=== PATIENT | female | born 1980 | race Two or more races ===

== ENCOUNTER 2017-02-10 16:47 | Emergency (ER) | payer MEDICAID ==
[~2017-02-10] VITALS: Ht 152.4 cm; Wt 55.3 kg
[2017-02-10 17:39] VITALS: BP 110/54
[2017-02-10] MEDS ORDERED: IBUPROFEN600 MG ORAL (18:08)
[2017-02-10] MEDS ORDERED: TAMIFLU75 MG ORAL (18:08)
[2017-02-10] MEDS ORDERED: PROMETHAZINE-D118 ML ORAL (18:08)
[2017-02-10 18:30] VITALS: BP 99/56
--- NOTE | 2017-02-10 22:53 | Emergency Room Report ---
History of Present Illness General Chief Complaint: Upper Respiratory Illness Source: Patient Present Illness [facility] The patient is a 36-year-old female who denies medical history presenting for 2 days of cough, fever, night sweats, fatigue, and total body pain. She denies any recent travel or known sick contacts. No flu shot this year. She denies other symptoms including N, V, SOB, CP, diarrhea Allergies: Coded Allergies: No Known Allergies (Unverified , 02/10/17) Patient History Past Medical History: see triage record Pertinent Family History: none Last Menstrual Period: 01/27/17 Now: No Reviewed Nursing Documentation: PMH: Agreed, PSxH: Agreed Nursing Documentation-PMH Past Medical History: No Stated History Review of Systems All Other Systems: negative except mentioned in HPI Physical Exam Vital Signs Date Time Temp Pulse Resp B/P (MAP) Pulse Ox O2 Delivery O2 Flow Rate FiO2 02/10/17 16:57 102.7 107 20 110/54 98 Room Air Sp02 EP Interpretation: reviewed, normal General Appearance: no apparent distress, alert, GCS 15, non-toxic Head: normocephalic, atraumatic Eyes: bilateral eye normal inspection, bilateral eye PERRL ENT: hearing grossly normal, no angioedema, normal voice, pharyngeal erythema Neck: full range of motion, supple/symm/no masses Respiratory: chest non-tender, lungs clear, normal breath sounds, speaking full sentences Cardiovascular #1: regular rate, rhythm, no edema Musculoskeletal: back normal, gait/station normal, normal range of motion, non- tender Neurologic: alert, oriented x3, responsive, motor strength/tone normal, sensory intact, speech normal Psychiatric: judgement/insight normal, memory normal, mood/affect normal, no suicidal/homicidal ideation Skin: normal color, no rash, warm/dry, well hydrated Lymphatic: no adenopathy Medical Decision Making PA Attestation Dr. Weston is my supervising physician. Patient management was discussed with my supervising physician Diagnostic Impression: Primary Impression: Influenza ER Course The patient is a 36-year-old female who denies medical history presenting for 2 days of cough, fever, night sweats, fatigue, and total body pain. Differential diagnosis include but not limited to influenza, pharyngitis, sinusitis, AOM, bronchitis, PNA PE: Febrile NAD. Appears somewhat lethargic HEENT exam: There is pharyngeal erythema. Otherwise unremarkable. No lymphadenopathy Lungs are clear to auscultation bilaterally Positive for influenza A The patient will be treated with Tamiflu as well as symptomatic treatment. ER precautions are given Microbiology Date/Time Source Procedure Growth Status 02/10/17 17:25 Nasal Nares Influenza Types A,B Antigen (DANISHA) - Final Complete Lab Results Impression + for influenza Last Vital Signs Date Time Temp Pulse Resp B/P (MAP) Pulse Ox O2 Delivery O2 Flow Rate FiO2 02/10/17 18:30 102.7 86 18 99/56 100 Room Air Status: improved Disposition: HOME, SELF-CARE Condition: Improved Scripts Oseltamivir Phosphate (Tamiflu) 75 Mg Capsule 75 MG ORAL TWICE A DAY, #10 CAP Prov: YADY BRO.A. 02/10/17 D-Methorphan Hb/Prometh Hcl* (PROMETHAZINE-DM SYRUP*) 118 Ml Syrup 5 ML ORAL Q6H Y for For Cough, #118 ML 0 Refills Prov: YADY BRO.A. 02/10/17 Ibuprofen* (MOTRIN*) 600 Mg Tablet 600 MG ORAL Q8H Y for For Pain, #30 TAB 0 Refills Prov: DAMIANANYADY P.A. 02/10/17 Referrals: NOT CHOSEN IPA/MD,REFERRING (PCP) Patient Instructions: Influenza, Adult Additional Instructions: I discussed my findings with the patient. All questions and concerns have been answered. Treatment and medication compliance have been addressed. I advised the patient that they need to follow up with PMD in 3-5 days. Return to ED if symptoms worsen, new symptoms arise, or if needed for any reason. Patient verbalized understanding of discharge instructions. YADY BRO Feb 10, 2017 22:53
== END 2017-02-10 18:30 | disposition home or self-care (01) ==
LOC: EMR 18:28
DX: J11.1 Influenza due to unidentified influenza virus with other respiratory manifestations (principal)
CPT/HCPCS: 86710; 99283

== ENCOUNTER 2018-09-21 15:30 | Emergency (ER) | payer MEDICAID ==
[~2018-09-21] VITALS: Ht 152.4 cm; Wt 54.4 kg
[~2018-09-21 15:30] MED LIST: IBUPROFEN600 MG ORAL; PROMETHAZINE-D118 ML ORAL; TAMIFLU75 MG ORAL
[2018-09-21] MEDS ORDERED: NKM (15:46)
--- NOTE | 2018-09-21 15:55 | NUR ---
ED Nurse Note: PT WALKED IN TO ER TODAY FROM HOME. AOX4. PT C/O LOWER ABDOMINAL PAIN, 07/26, RADIATING TO LEFT LOWER BACK ALONG WITH VAGINAL BLEEDING X 2 DAYS AGO. PT STATES SHE IS A CHANGING ONE PAD EVERY 4 HOURS. PT STATES SHE DID HAVE CLOTS WITH BLEEDING BUT DENIES ANY CLOTS TODAY. PT STATES SHE HAD A POSITIVE URINE RESULT FROM [facility] ON 09/17/18. PT DENIES CRAMPING OR CONTRACTIONS.
--- NOTE | 2018-09-21 16:12 | Emergency Room Report ---
History of Present Illness General Chief Complaint: Complications Source: Patient Present Illness HPI 38-year-old female presents to the emergency department complaining of 6 out of 10 severity lower left-sided abdominal pain that radiates to her back with associated vaginal bleeding x2 days. Patient reports that she is currently she had a positive test at a clinic 4 days ago. Patient denies taking vitamins. Patient states her last menstrual period was in August approximately August 25. She reports that she is G2, P1 with a previous C -section denies complications during her previous process. Patient denies past medical history she also reports she is been noticing she has had dry mouth for several days she denies cramping sensation she denies nausea vomiting, fevers or chills. Patient does report some dysuria she denies urinary frequency. describes vaginal bleeding to be dark red in color and that she is using a normal pad every 4 hours. Denies CP, Palpitations, LOC, AMS, dizziness, Changes in Vision, Sensation, paresthesias, or a sudden severe headache. Allergies: Coded Allergies: No Known Allergies (Unverified , 02/10/17) Patient History Past Medical History: see triage record Past Surgical History: none Pertinent Family History: none Now: Yes Reviewed Nursing Documentation: PMH: Agreed; PSxH: Agreed Nursing Documentation-PMH Past Medical History: No Stated History Review of Systems All Other Systems: negative except mentioned in HPI Physical Exam Vital Signs Date Time Temp Pulse Resp B/P (MAP) Pulse Ox O2 Delivery O2 Flow Rate FiO2 09/21/18 15:38 98.1 58 15 115/75 (88) 97 Room Air Sp02 EP Interpretation: reviewed, normal General Appearance: no apparent distress, alert, GCS 15, non-toxic Head: normocephalic, atraumatic Eyes: bilateral eye normal inspection, bilateral eye PERRL ENT: hearing grossly normal, normal voice Neck: full range of motion Respiratory: lungs clear, normal breath sounds, speaking full sentences Cardiovascular #1: regular rate, rhythm Gastrointestinal: normal bowel sounds, non tender, soft, no peritonitis, non- distended, no guarding Rectal: deferred Genitourinary: normal inspection, no CVA tenderness, other - Left adnexal ttp. Midline TTP, deferred - FOR pelvic US, moderate blood in the vaginal vault. Musculoskeletal: back normal, gait/station normal, normal range of motion, non- tender Neurologic: alert, oriented x3, responsive, motor strength/tone normal, sensory intact, speech normal, grossly normal Psychiatric: judgement/insight normal Lymphatic: no adenopathy Medical Decision Making PA Attestation Dr. Flores is my supervising Physician whom patient management has been discussed with. Diagnostic Impression: Primary Impression: Miscarriage, threatened, early Additional Impression: Vaginal bleeding affecting early ER Course 38-year-old female presents to the emergency department complaining of 6 out of 10 severity lower left-sided abdominal pain that radiates to her back with associated vaginal bleeding x2 days. Patient reports that she is currently she had a positive test at a clinic 4 days ago. Patient denies taking vitamins. Patient states her last menstrual period was in August approximately August 25. She reports that she is G2, P1 with a previous C -section denies complications during her previous process. Patient denies past medical history she also reports she is been noticing she has had dry mouth for several days she denies cramping sensation she denies nausea vomiting, fevers or chills. Patient does report some dysuria she denies urinary frequency. describes vaginal bleeding to be dark red in color and that she is using a normal pad every 4 hours. Denies CP, Palpitations, LOC, AMS, dizziness, Changes in Vision, Sensation, paresthesias, or a sudden severe headache. Ddx considered but are not limited to: Fibroid, ectopic , Fibroid, Spontaneous , Vital signs: are WNL, pt. is afebrile H&PE are most consistent with: spotting during early with threatened miscarriage ORDERS: -Urine hcg- Positive -serum Hcg Quant: 21 - Blood/RH type and screen- see attached labs --- Rh POSITIVE -UA: RBC's , few bacteria and few squamous--most indicative of contamination: presence of equal amounts of bacteria and squamous cells, no elevation in inflammatory markers, nitrite negative. -BMP: WNL ED INTERVENTIONS: None at this time. --Patient declines Tylenol DISCHARGE: At this time pt. is stable for d/c to home. Will provide printed patient care instructions, and any necessary prescriptions. Care plan and follow up instructions have been discussed with the patient prior to discharge. Labs Test 09/21/18 16:08 Urine Color Pale yellow Urine Appearance Clear Urine pH 5 (4.5-8.0) Urine Specific [place] 1.010 (1.005-1.035) Urine Protein 1+ (NEGATIVE) Urine Glucose (UA) Negative (NEGATIVE) Urine Ketones Negative (NEGATIVE) Urine Blood 5+ (NEGATIVE) Urine Nitrite Negative (NEGATIVE) Urine Bilirubin Negative (NEGATIVE) Urine Urobilinogen Normal MG/DL (0.0-1.0) Urine Leukocyte Esterase Negative (NEGATIVE) Urine RBC 10-15 /HPF (0 - 2) Urine WBC 0-2 /HPF (0 - 2) Urine Squamous Epithelial Cells Few /LPF (NONE/OCC) Urine Bacteria Few /HPF (NONE) Sodium Level 141 MMOL/L (136-145) Potassium Level 3.6 MMOL/L (3.5-5.1) Chloride Level 102 MMOL/L (98-107) Carbon Dioxide Level 28 MMOL/L (21-32) Anion Gap 11 mmol/L (5-15) Blood Urea Nitrogen 10 mg/dL (7-18) Creatinine 0.6 MG/DL (0.55-1.30) Estimat Glomerular Filtration Rate > 60 mL/min (>60) Glucose Level 87 MG/DL (74-106) Calcium Level 9.9 MG/DL (8.5-10.1) Total Bilirubin 0.4 MG/DL (0.2-1.0) Aspartate Amino Transf (AST/SGOT) 14 U/L (15-37) Alanine Aminotransferase (ALT/SGPT) 15 U/L (12-78) Alkaline Phosphatase 64 U/L (46-116) Total Protein 8.4 G/DL (6.4-8.2) Albumin 4.2 G/DL (3.4-5.0) Globulin 4.2 g/dL Albumin/Globulin Ratio 1.0 (1.0-2.7) Human Chorionic Gonadotropin, Quant 21 mIU/mL (1-6) CT/MRI/US Diagnostic Results CT/MRI/US Diagnostic Results : Imaging Test Ordered: Pelvic US Impression " Endometrium measures 4 mm. No IUP. No complex adnexal lesions. Findings are nonspecific and may be seen in the setting of early IUP, SAB or occult ectopic. Correlation and follow-up needed. " --per official radiology report- Please see report for specific details. Last Vital Signs Date Time Temp Pulse Resp B/P (MAP) Pulse Ox O2 Delivery O2 Flow Rate FiO2 8/6/19 15:38 98.1 58 15 115/75 (88) 97 Room Air Disposition: HOME, SELF-CARE Condition: Stable Scripts Acetaminophen* (TYLENOL EXTRA STRENGTH*) 500 Mg Tablet 500 MG ORAL Q6H, #20 TAB 0 Refills Prov: Julissa Portillo 09/21/18 Vit #91/Fe Fum/Fa/Dha ( + DHA COMBO PACK) 1 Each Combo..pkg 1 EACH PO DAILY for 30 Days, #1 PACK 2 Refills Prov: Julissa Portillo 09/21/18 Patient Instructions: Threatened Miscarriage, Threatened Miscarriage, Easy-to- Read Additional Instructions: Take medications as directed. YOUR beta HCG today was ( 21). Follow up with a OBGYN within 3 days, even if your symptoms have resolved. Return sooner to ED if new symptoms occur, or current symptoms become worse. - Please note that this Emergency Department Report was dictated using [employer] technology software, occasionally this can lead to erroneous entry secondary to interpretation by the dictation equipment. Julissa Portillo Sep 21, 2018 16:12
--- NOTE | 2018-09-21 16:17 | NUR ---
ED Nurse Note: RADIOLOGY CALLED FOR ULTRASOUND.
--- NOTE | 2018-09-21 16:22 | NUR ---
ED Nurse Note: PT. WENT DOWN TO US
[2018-09-21 16:24] LABS: APPEARANCE,URINE CLEAR; BILIRUBIN, URINE NEGATIVE (NEGATIVE); COLOR,URINE PALE YELLOW; GLUCOSE, URINE (UA) NEGATIVE (NEGATIVE); KETONES,URINE NEGATIVE (NEGATIVE); LEUKOCYTE ESTERASE ,URINE NEGATIVE (NEGATIVE); NITRITE,URINE NEGATIVE (NEGATIVE); PH,URINE 5 (4.5-8.0); PROTEIN,URINE 1+ (NEGATIVE); UROBILINOGEN,URINE NORMAL MG/DL (0.0-1.0)
[2018-09-21 16:34] LABS: ANION GAP 11 mmol/L (5-15); BLOOD UREA NITROGEN 10 mg/dL (7-18); CALCIUM 9.9 MG/DL (8.5-10.1); CARBON DIOXIDE 28 MMOL/L (21-32); CHLORIDE 102 MMOL/L (98-107); CREATININE 0.6 MG/DL (0.55-1.30); POTASSIUM 3.6 MMOL/L (3.5-5.1); SODIUM 141 MMOL/L (136-145)
[2018-09-21 16:38] LABS: ALANINE AMINOTRANSFERASE 15 U/L (12-78); ALBUMIN 4.2 G/DL (3.4-5.0); ALKALINE PHOSPHATASE 64 U/L (46-116); ASPARTATE AMINO TRANSFERASE 14 U/L (15-37); BILIRUBIN,TOTAL 0.4 MG/DL (0.2-1.0)
--- NOTE | 2018-09-21 17:20 | NUR ---
ED Nurse Note: PT BACK FROM ULTRASOUND.
--- NOTE | 2018-09-21 17:48 | Diagnostic Imaging Report ---
Indication: Abdominal pain, positive test Technique: Transabdominal and endovaginal pelvic ultrasound was performed. Findings: Uterus is anteverted, measuring approximately 8.8 x 4.1 x 5.1 cm. Endometrium is not thickened, measuring 4 mm. No gestational sac is identified. There is no free fluid. Right ovary: Measures 3.6 x 2.4 x 3 cm (13 cc). Vascular flow is confirmed with color Doppler. Simple appearing hypoechoic structure in the ovary likely represents follicle/cyst. Left ovary: Without masses, measuring 3.7 x 2.3 x 3.9 cm (18 cc). Vascular flow is confirmed with color Doppler. Hypoechoic foci in the cervix likely represent nabothian cysts. Impression: No evidence of intrauterine . In the setting of positive bHCG, follow-up is recommended to exclude possibility of occult ectopic .
[2018-09-21] MEDS ORDERED: TYLENOL EXTRA500 MG ORAL (18:21)
[2018-09-21] MEDS ORDERED: PRENATAL + DHA1 EAC1 PO (18:21)
[2018-09-21 18:55] VITALS: BP 122/76
--- NOTE | 2018-09-21 18:55 | NUR ---
ED Nurse Note: PT LAYING PEACEFULLY IN BED IN NAD. AOX4. PRESCRIPTIONS AND DISCHARGE PAPERWORK EXPLAINED TO PT. PT VERBALIZES UNDERSTANDING AND ALL QUESTIONS ANSWERED. PRESCRIPTIONS AND DISCHARGE PAPERWORK GIVEN TO PT, IV AND ID WRISTBAND REMOVED. PT WALKED OUT OF ER WITH STEADY GAIT AND ALL BELONGINGS.
== END 2018-09-21 18:57 | disposition home or self-care (01) ==
LOC: EMR 16:25
DX: O20.0 Threatened abortion (principal); Z3A.00 Weeks of gestation of pregnancy not specified; O46.91 Antepartum hemorrhage, unspecified, first trimester
CPT/HCPCS: 36415; 76830; 76856; 80053; 81003; 84702; 86900; 86901; 99284

== ENCOUNTER 2018-10-27 18:33 | Emergency (ER) | payer MEDICAID ==
[~2018-10-27] VITALS: Ht 157.5 cm; Wt 55.8 kg
[~2018-10-27 18:33] MED LIST changes: +NKM; +PRENATAL + DHA1 EAC1 PO; +TYLENOL EXTRA500 MG ORAL
[2018-10-27 19:08] LABS: APPEARANCE,URINE CLEAR; BILIRUBIN, URINE NEGATIVE (NEGATIVE); COLOR,URINE PALE YELLOW; GLUCOSE, URINE (UA) NEGATIVE (NEGATIVE); KETONES,URINE NEGATIVE (NEGATIVE); LEUKOCYTE ESTERASE ,URINE 1+ (NEGATIVE); NITRITE,URINE NEGATIVE (NEGATIVE); PH,URINE 6 (4.5-8.0); PROTEIN,URINE NEGATIVE (NEGATIVE); UROBILINOGEN,URINE NORMAL MG/DL (0.0-1.0)
--- NOTE | 2018-10-27 19:12 | NUR ---
ED Nurse Note:pt. came with symptoms of urinary trac infection, urine sent to labs
--- NOTE | 2018-10-27 19:13 | Emergency Room Report ---
History of Present Illness General Chief Complaint: Female Urogenital Problems Source: Patient (Julissa Portillo) Present Illness HPI 38-year-old female presents to the emergency department complaining of 7 out of 10 severity left lower quadrant abdominal pain with radiation towards the back in addition to pain with urination and urinary frequency x 2 days. Patient denies rashes, genital lesions, hematuria, urgency, nausea or vomiting. Patient reports normal bowel movements. She denies fevers or chills. Patient reports pain is exacerbated upon light palpation of the lower left portion of the abdomen. Patient states she feels as though her stomach is very distended. Patient reports that she is able to pass gas. She denies or suspicion of . Denies vaginal d/c. No aggravating or relieving factors at this time. (Julissa Portillo) Allergies: Coded Allergies: No Known Allergies (Unverified , 02/10/17) Patient History Past Medical History: see triage record Past Surgical History: none Pertinent Family History: none Last Menstrual Period: 10/21/18 Now: No Reviewed Nursing Documentation: PMH: Agreed; PSxH: Agreed (Julissa Portillo) Nursing Documentation-PMH Past Medical History: No Stated History (Julissa Portillo) Physical Exam Vital Signs Date Time Temp Pulse Resp B/P (MAP) Pulse Ox O2 Delivery O2 Flow Rate FiO2 10/27/18 18:35 98.2 72 18 102/65 (77) 99 Room Air Sp02 EP Interpretation: reviewed, normal General Appearance: alert, GCS 15, non-toxic, mild distress Head: normocephalic, atraumatic Eyes: bilateral eye normal inspection, bilateral eye PERRL ENT: hearing grossly normal, normal voice Neck: full range of motion Respiratory: lungs clear, normal breath sounds, speaking full sentences Cardiovascular #1: regular rate, rhythm Gastrointestinal: normal bowel sounds, soft, tenderness - moderate TTP to the Left LQ, not particularly in the adnexal area. Genitourinary: normal inspection, no CVA tenderness, adnexa normal - not tender Musculoskeletal: back normal, gait/station normal, normal range of motion, non- tender Neurologic: alert, oriented x3, responsive, motor strength/tone normal, sensory intact, speech normal, grossly normal Psychiatric: judgement/insight normal Skin: no rash Lymphatic: no adenopathy (Julissa Portillo) Medical Decision Making PA Attestation Dr. Gaitan Is my supervising Physician whom patient management has been discussed with. (Julissa Portillo) Diagnostic Impression: Primary Impression: Abdominal pain Qualified Codes: R10.32 - Left lower quadrant pain ER Course 38-year-old female presents to the emergency department complaining of 7 out of 10 severity left lower quadrant abdominal pain with radiation towards the back in addition to pain with urination and urinary frequency x 2 days. Patient denies rashes, genital lesions, hematuria, urgency, nausea or vomiting. Patient reports normal bowel movements. She denies fevers or chills. Patient reports pain is exacerbated upon light palpation of the lower left portion of the abdomen. Patient states she feels as though her stomach is very distended. Patient reports that she is able to pass gas. She denies or suspicion of . Denies vaginal d/c. No aggravating or relieving factors at this time. Ddx considered but are not limited to Diverticulitis, acute appy, diarrhea,UC, PUD, GE, pancreatitis, gallstone, ovarian torsion, ectopic , PID tubo-ovarian abscess. Vital signs: are WNL, pt. is afebrile H&PE are most consistent with [ ] ORDERS: -CBC, CMP, LIPASE:unremarkable -UA: Unremarkable -URINE HCG: Negative -CT Abdomen and Pelvis With IV and Oral Contrast.--- Multiple abnormalities possible early appendicitis please see official radiology report for specific details. ED INTERVENTIONS: - 2mg Morphine IV -Mylanta PO DISPOSITION: at this time pt. will be admitted , Pt. signed out to Dr. Flores Labs Test 10/27/18 18:45 10/27/18 20:35 Urine Color Pale yellow Urine Appearance Clear Urine pH 6 (4.5-8.0) Urine Specific [place] 1.010 (1.005-1.035) Urine Protein Negative (NEGATIVE) Urine Glucose (UA) Negative (NEGATIVE) Urine Ketones Negative (NEGATIVE) Urine Blood Negative (NEGATIVE) Urine Nitrite Negative (NEGATIVE) Urine Bilirubin Negative (NEGATIVE) Urine Urobilinogen Normal MG/DL (0.0-1.0) Urine Leukocyte Esterase 1+ (NEGATIVE) Urine RBC 0-2 /HPF (0 - 2) Urine WBC 2-4 /HPF (0 - 2) Urine Squamous Epithelial Cells Few /LPF (NONE/OCC) Urine Bacteria Few /HPF (NONE) Urine HCG, Qualitative Negative (NEGATIVE) White Blood Count 9.3 K/UL (4.8-10.8) Red Blood Count 4.06 M/UL (4.20-5.40) Hemoglobin 12.4 G/DL (12.0-16.0) Hematocrit 35.3 % (37.0-47.0) Mean Corpuscular Volume 87 FL (80-99) Mean Corpuscular Hemoglobin 30.5 PG (27.0-31.0) Mean Corpuscular Hemoglobin Concent 35.1 G/DL (32.0-36.0) Red Cell Distribution Width 12.6 % (11.6-14.8) Platelet Count 177 K/UL (150-450) Mean Platelet Volume 7.7 FL (6.5-10.1) Neutrophils (%) (Auto) 63.4 % (45.0-75.0) Lymphocytes (%) (Auto) 23.4 % (20.0-45.0) Monocytes (%) (Auto) 9.4 % (1.0-10.0) Eosinophils (%) (Auto) 3.3 % (0.0-3.0) Basophils (%) (Auto) 0.5 % (0.0-2.0) Sodium Level 144 MMOL/L (136-145) Potassium Level 3.7 MMOL/L (3.5-5.1) Chloride Level 107 MMOL/L (98-107) Carbon Dioxide Level 28 MMOL/L (21-32) Anion Gap 9 mmol/L (5-15) Blood Urea Nitrogen 12 mg/dL (7-18) Creatinine 0.7 MG/DL (0.55-1.30) Estimat Glomerular Filtration Rate > 60 mL/min (>60) Glucose Level 83 MG/DL (74-106) Calcium Level 9.2 MG/DL (8.5-10.1) Total Bilirubin 0.5 MG/DL (0.2-1.0) Aspartate Amino Transf (AST/SGOT) 11 U/L (15-37) Alanine Aminotransferase (ALT/SGPT) 20 U/L (12-78) Alkaline Phosphatase 62 U/L (46-116) Total Protein 7.0 G/DL (6.4-8.2) Albumin 3.6 G/DL (3.4-5.0) Globulin 3.4 g/dL Albumin/Globulin Ratio 1.1 (1.0-2.7) Lipase 156 U/L (73-393) (Julissa Portillo) ER Course Hospital Course 38 year-old female presents to ED with abdominal pain Initially seen and evaluated by MICAH Portillo; please see her note for full history and physical Clinical course Labs - no leukocytosis, Hb/Hct stable. electrolytes ok, UA negative CT abdomen and pelvis -appendix enlarged. Possible early appendicitis. Right adnexal mass noted. Discussed findings with patient. Concern for early appendicitis. Patient would benefit from admission and serial abdominal exams. Because of insurance patient will be transferred I feel this is a highly complex case requiring extensive working including EKG/ Rhythm strip, Xray/CT/US, Blood/urine lab work, repeat exams while in ED, and administration of strong opiates/narcotics for pain control, admission to hospital or close patient follow up. Diagnosis - abdominal pain transferred in serious condition Labs Test 10/27/18 18:45 10/27/18 20:35 Urine Color Pale yellow Urine Appearance Clear Urine pH 6 (4.5-8.0) Urine Specific [place] 1.010 (1.005-1.035) Urine Protein Negative (NEGATIVE) Urine Glucose (UA) Negative (NEGATIVE) Urine Ketones Negative (NEGATIVE) Urine Blood Negative (NEGATIVE) Urine Nitrite Negative (NEGATIVE) Urine Bilirubin Negative (NEGATIVE) Urine Urobilinogen Normal MG/DL (0.0-1.0) Urine Leukocyte Esterase 1+ (NEGATIVE) Urine RBC 0-2 /HPF (0 - 2) Urine WBC 2-4 /HPF (0 - 2) Urine Squamous Epithelial Cells Few /LPF (NONE/OCC) Urine Bacteria Few /HPF (NONE) Urine HCG, Qualitative Negative (NEGATIVE) White Blood Count 9.3 K/UL (4.8-10.8) Red Blood Count 4.06 M/UL (4.20-5.40) Hemoglobin 12.4 G/DL (12.0-16.0) Hematocrit 35.3 % (37.0-47.0) Mean Corpuscular Volume 87 FL (80-99) Mean Corpuscular Hemoglobin 30.5 PG (27.0-31.0) Mean Corpuscular Hemoglobin Concent 35.1 G/DL (32.0-36.0) Red Cell Distribution Width 12.6 % (11.6-14.8) Platelet Count 177 K/UL (150-450) Mean Platelet Volume 7.7 FL (6.5-10.1) Neutrophils (%) (Auto) 63.4 % (45.0-75.0) Lymphocytes (%) (Auto) 23.4 % (20.0-45.0) Monocytes (%) (Auto) 9.4 % (1.0-10.0) Eosinophils (%) (Auto) 3.3 % (0.0-3.0) Basophils (%) (Auto) 0.5 % (0.0-2.0) Sodium Level 144 MMOL/L (136-145) Potassium Level 3.7 MMOL/L (3.5-5.1) Chloride Level 107 MMOL/L (98-107) Carbon Dioxide Level 28 MMOL/L (21-32) Anion Gap 9 mmol/L (5-15) Blood Urea Nitrogen 12 mg/dL (7-18) Creatinine 0.7 MG/DL (0.55-1.30) Estimat Glomerular Filtration Rate > 60 mL/min (>60) Glucose Level 83 MG/DL (74-106) Calcium Level 9.2 MG/DL (8.5-10.1) Total Bilirubin 0.5 MG/DL (0.2-1.0) Aspartate Amino Transf (AST/SGOT) 11 U/L (15-37) Alanine Aminotransferase (ALT/SGPT) 20 U/L (12-78) Alkaline Phosphatase 62 U/L (46-116) Total Protein 7.0 G/DL (6.4-8.2) Albumin 3.6 G/DL (3.4-5.0) Globulin 3.4 g/dL Albumin/Globulin Ratio 1.1 (1.0-2.7) Lipase 156 U/L (73-393) (Justyn Flores MD) CT/MRI/US Diagnostic Results CT/MRI/US Diagnostic Results : Imaging Test Ordered: CT Abdomen and Pelvis With IV and Oral Contrast. Impression Multiple abnormalities possible early appendicitis please see official radiology report for specific details. (Julissa Portillo) CT/MRI/US Diagnostic Results : Imaging Test Ordered: CT A/P Impression Motion degraded study. There are no acute findings involving the solid abdominal organs. The gallbladder and biliary tree are unremarkable. Lower GI tract demonstrates no evidence of obstruction, pneumatosis or focal wall thickening. Appendix is enlarged by CT criteria measuring 6.8 mm in cross section. However, no definitive periappendiceal inflammatory changes are identified. Finding may be a normal variant in the absence of patient having a clinical presentation exam compatible with early acute appendicitis. Cystic mass right adnexa measuring approximately 24 mm. A second adjacent cystic focus is likely unopacified small bowel loop. At least a moderate amount of heterogeneous fluid right adnexa and dependent pelvis indeterminate for blood products from follicular rupture or inflammatory fluid. Heterogeneous enlargement uterus and cervix indeterminate for acute cervicitis PID, requiring correlation with physical pelvic exam. Mild bladder wall thickening with reticulation indeterminate for cystitis or chronic outlet obstruction. (Justyn Flores MD) Last Vital Signs Date Time Temp Pulse Resp B/P (MAP) Pulse Ox O2 Delivery O2 Flow Rate FiO2 10/27/18 18:35 98.2 72 18 102/65 (77) 99 Room Air (Julissa Portillo) Status: improved (Justyn Flores MD) Disposition: XFER SHT-TRM HOSP Condition: Serious Signed Out To: Dr. Flores (Julissa Portillo) Julissa Portillo Oct 27, 2018 19:13 Justyn Flores MD Oct 28, 2018 01:51
--- NOTE | 2018-10-27 19:18 | NUR ---
HAND-OFF: Report given to Claribel.
[2018-10-27] MEDS ORDERED: Isovue-300 100ml vial INJ PRN (20:30)
[2018-10-27] MEDS ORDERED: Morphine Sulfate 2mg/ml Inj(IV/IM USE ONLY) IVP ONE (20:30)
[2018-10-27 20:40] VITALS: BP 118/72
--- NOTE | 2018-10-27 20:40 | NUR ---
ER Nurse Note: All orders completed per ER PA orders. IV established RT AC; patent. Labs drawn and sent to lab. Pt complained of pain, 7/10 in lower abd; ER PA notifed. Pt ambulatory. Oral contrast being consumed by pt. All safety measures met, will [facility] to [facility].
[2018-10-27 21:07] LABS: BASOPHILS % (AUTO) 0.5 % (0.0-2.0); EOSINOPHILS % (AUTO) 3.3 % (0.0-3.0); HEMATOCRIT 35.3 % (37.0-47.0); HEMOGLOBIN 12.4 G/DL (12.0-16.0); LYMPHOCYTES % (AUTO) 23.4 % (20.0-45.0); MEAN CORPUSCULAR VOLUME 87 FL (80-99); MONOCYTES % (AUTO) 9.4 % (1.0-10.0); NEUTROPHILS % (AUTO) 63.4 % (45.0-75.0); PLATELET COUNT 177 K/UL (150-450); RED BLOOD COUNT 4.06 M/UL (4.20-5.40); RED CELL DISTRIBUTION WIDTH 12.6 % (11.6-14.8); WHITE BLOOD COUNT 9.3 K/UL (4.8-10.8)
[2018-10-27 21:15] LABS: ANION GAP 9 mmol/L (5-15); BLOOD UREA NITROGEN 12 mg/dL (7-18); CALCIUM 9.2 MG/DL (8.5-10.1); CARBON DIOXIDE 28 MMOL/L (21-32); CHLORIDE 107 MMOL/L (98-107); CREATININE 0.7 MG/DL (0.55-1.30); POTASSIUM 3.7 MMOL/L (3.5-5.1); SODIUM 144 MMOL/L (136-145)
[2018-10-27 21:24] LABS: ALANINE AMINOTRANSFERASE 20 U/L (12-78); ALBUMIN 3.6 G/DL (3.4-5.0); ALBUMIN/GLOBULIN RATIO 1.1 (1.0-2.7); ALKALINE PHOSPHATASE 62 U/L (46-116); ASPARTATE AMINO TRANSFERASE 11 U/L (15-37); BILIRUBIN,TOTAL 0.5 MG/DL (0.2-1.0)
--- NOTE | 2018-10-27 22:55 | Diagnostic Imaging Report ---
Indication: Abdominal pain Technique: Continuous helical transaxial imaging of the abdomen and pelvis was obtained from the lung bases to the pubic symphysis during intravenous contrast administration. Coronal 2-D reformats were also obtained. Study obtained in a Siemens sensation [address] Automatic Exposure Control was utilized. Total Dose length Product (DLP): 521.[address] Dose Index Volume (CTDIvol): 11.86 mGy Comparison: None Findings: There is mild right basal atelectasis demonstrated. The liver and spleen, pancreas and gallbladder, kidneys are unremarkable. There is suggestion of a right parapelvic cyst and a tiny left cortical cyst. There is good opacification of small bowel. There is no evidence of bowel obstruction. The appendix is retrocecal and the likely normal with intraluminal air. Uterus is noted. There is suggestion of a small right ovarian cyst measuring approximately 2 cm. The urinary bladder is unremarkable. There is no free fluid. There is a small umbilical hernia. IMPRESSION: No acute findings 2 cm right ovarian cyst. The CT scanner at [facility] is accredited by the [employer] and the scans are performed using dose optimization techniques as appropriate to a performed exam including Automatic Exposure control.
[2018-10-27 23:00] VITALS: BP 106/68
--- NOTE | 2018-10-27 23:00 | NUR ---
ER Nurse Note: All orders completed. Results of CT were explained. Pt is aware of transfer. Denies new pain, no signs of distress, stable. at bedside. No episodes of nausea, vomiting, dizziness. All safety measrues met; will continue to [facility].
[2018-10-28 01:00] VITALS: BP 110/70
--- NOTE | 2018-10-28 01:43 | NUR ---
ER Nurse Note: Report given to VERENICE Mcclelland at [facility] for continuity of care. Pt stable, no signs of distress. Pt denies pain and nausea. Pt is asleep, calm, cooperative. Awaiting transportation, all safety measures met; will continue to [facility].
[2018-10-28 03:47] VITALS: BP 98/58
--- NOTE | 2018-10-28 03:48 | NUR ---
ER Nurse Note: Transportation arrived, pt &ox4, stable, no signs of distress. Pt left with all belongings with .
== END 2018-10-28 03:48 | disposition short-term general hospital (02) ==
LOC: EMR 21:40
DX: R10.32 Left lower quadrant pain (principal); K38.9 Disease of appendix, unspecified; N83.8 Other noninflammatory disorders of ovary, fallopian tube and broad ligament
CPT/HCPCS: 36415; 74177; 80053; 81003; 81025; 83690; 85025; 96374; J2270; Q9967; Z7502; 99284